=== PATIENT | male | born 1990 ===

== ENCOUNTER 2021-07-09 20:19 | Inpatient (IN) | payer BC, OTHER ==
[~2021-07-09] VITALS: Ht 177.8 cm; Wt 75.6 kg
[2021-07-09] MEDS: LORazepam 2 MG/ML, 1ML IVPush PRN ×2 (20:40→20:50)
[2021-07-09] MEDS ORDERED: LORazepam 2 MG/ML, 1ML ONE (20:49)
--- NOTE | 2021-07-09 20:52 | NUR ---
MAIRA GEORGE [phone]
[2021-07-09] MEDS ORDERED: SODIUM CHLORIDE 0.9% 1,000ML IVBOLUS ONE (21:00)
[2021-07-09] MEDS ORDERED: SODIUM CHLORIDE FLUSH 10ML SYR IVF ONE (21:00)
[2021-07-09] MEDS ORDERED: MAGNESIUM SULFATE 1 GM, THIAMINE 100 MG, FOLIC ACID 1 MG, MVI ADULT 10 ML in SODIUM CHL... IV ONE (21:00)
[2021-07-09 21:12] LABS: BASOPHILS % (AUTO) 1 % (0-1); EOSINOPHILS % (AUTO) 0 % (1-7); LYMPHOCYTES % (AUTO) 13 % (22-44); MEAN CORPUSCULAR HEMOGLOBIN 35.1 pg (27.5-34.5); MEAN CORPUSCULAR HGB CONC 34.7 g/dL (33.2-36.2); MEAN PLATELET VOLUME 9.3 fL (7.4-10.4); MONOCYTES % (AUTO) 15 % (2-9); NEUTROPHILS % (AUTO) 71 % (42-75); PLATELET COUNT 147 x10^3/uL (130-400); RED BLOOD COUNT 4.13 x10^6/uL (4.38-5.82); RED CELL DISTRIBUTION WIDTH 15.2 % (9.4-14.8)
[2021-07-09 21:18] LABS: ALANINE AMINOTRANSFERASE 127 U/L (12-78); ALBUMIN 4.3 g/dL (3.4-5.0); ANION GAP 23 mmol/L (5-15); CALCIUM 9.1 mg/dL (8.5-10.1); CHLORIDE 95 mmol/L (98-107); CREATININE 0.93 mg/dL (0.7-1.3)
[2021-07-09 21:20] LABS: ALKALINE PHOSPHATASE 102 U/L (45-117); BILIRUBIN,TOTAL 1.1 mg/dL (0.2-1.0); TOTAL PROTEIN 8.3 g/dL (6.4-8.2)
[2021-07-09] MEDS ORDERED: POTASSIUM CHLORIDE 20 MEQ TAB.ER.PRT ONE (21:45)
[2021-07-09] MEDS ORDERED: ONDANSETRON 2MG/ML, 2ML IVPush ONE (22:00)
[2021-07-09] MEDS ORDERED: POTASSIUM CHLORIDE 20 MEQ TAB.ER.PRT PO ONE (22:00)
[2021-07-09] MEDS ORDERED: ONDANSETRON 2MG/ML, 2ML ONE (22:05)
--- NOTE | 2021-07-09 22:16 | NUR ---
PT REPORTING NAUSEA, JAYESH STEELE AWARE, WILL ORDER ZOFRAN
--- NOTE | 2021-07-09 23:19 | NUR ---
REPORT GIVEN TO CLEMENTINE FARRELL
--- NOTE | 2021-07-09 23:20 | NUR ---
REPORT FROM JOSIAS PT RESTING ON YONG FRAGOSO, RESP EVEN UNLABORED
[2021-07-10] MEDS ORDERED: POTASSIUM CHLORIDE 40 MEQ in LACTATED RINGERS 1,000 ML IV SCH
[2021-07-10] MEDS ORDERED: LORazepam 2 MG/ML, 1ML ONE (00:05)
[2021-07-10] MEDS: LORazepam 2 MG/ML, 1ML IVPush PRN (00:09)
--- NOTE | 2021-07-10 00:12 | NUR ---
PT VERY TREMULOUS STS HE FEELS BAD, PT MEDICATED FOR WITHDRAWL SX
[2021-07-10] MEDS ORDERED: BACLOFEN 10 MG TABLET PO PRN (00:30)
[2021-07-10] MEDS ORDERED: ENOXAPARIN 40 MG/0.4 ML SQ SCH (00:30)
[2021-07-10] MEDS ORDERED: ONDANSETRON 2MG/ML, 2ML IV PRN (00:30)
[2021-07-10] MEDS ORDERED: LORazepam 0.5MG TABLET PO PRN (00:30)
[2021-07-10] MEDS ORDERED: ACETAMINOPHEN 650 MG SUPP PR PRN (00:30)
[2021-07-10] MEDS ORDERED: BISACODYL 10 MG SUPP PR PRN (00:30)
[2021-07-10] MEDS ORDERED: DIAZEPAM 5 MG TABLET PO SCH (00:30)
[2021-07-10] MEDS ORDERED: ALUMINUM/MAG/SIMETHICONE 30 ML UDC PO PRN (00:30)
[2021-07-10] MEDS ORDERED: LORazepam 1MG TABLET PO PRN ×4 (00:30)
[2021-07-10] MEDS ORDERED: LORazepam 2 MG/ML, 1ML IV PRN ×5 (00:30)
[2021-07-10] MEDS ORDERED: ACETAMINOPHEN 325 MG TABLET PO PRN (00:30)
[2021-07-10] MEDS ORDERED: DOCUSATE 100 MG CAPSULE PO PRN (00:30)
[2021-07-10 01:02] LABS: BASOPHILS % (AUTO) 1 % (0-1); EOSINOPHILS % (AUTO) 0 % (1-7); LYMPHOCYTES % (AUTO) 10 % (22-44); MEAN CORPUSCULAR HEMOGLOBIN 35.3 pg (27.5-34.5); MEAN CORPUSCULAR HGB CONC 35.2 g/dL (33.2-36.2); MEAN PLATELET VOLUME 9.1 fL (7.4-10.4); MONOCYTES % (AUTO) 18 % (2-9); NEUTROPHILS % (AUTO) 71 % (42-75); PLATELET COUNT 115 x10^3/uL (130-400); RED BLOOD COUNT 3.69 x10^6/uL (4.38-5.82); RED CELL DISTRIBUTION WIDTH 15.4 % (9.4-14.8)
[2021-07-10 01:03] LABS: ANION GAP 8 mmol/L (5-15); CALCIUM 8.1 mg/dL (8.5-10.1); CHLORIDE 103 mmol/L (98-107); CREATININE 0.58 mg/dL (0.7-1.3)
--- NOTE | 2021-07-10 01:11 | NUR ---
REPORT CALLED TO ANN FARRELL, ALL QUESTIONS ADDRESSED PT READY FOR TRANSFER TO [phone]
[2021-07-10 01:59] VITALS: BP 122/71
[2021-07-10 07:17] VITALS: BP 122/78
[2021-07-10] MEDS ORDERED: MULTIVITAMINS/MINERALS TABLET PO SCH (09:00)
[2021-07-10] MEDS: POTASSIUM CHLORIDE 20 MEQ, MAGNESIUM SULFATE 1 GM, FOLIC ACID 1 MG, THIAMINE 200 MG, MV... IV SCH ×2 (09:22→16:00)
[2021-07-10] MEDS ORDERED: MULT-484 PO (09:44)
[2021-07-10 10:55] LABS: AMPHETAMINE SCREEN, URINE Negative (Negative); BARBITURATE SCREEN, URINE Negative (Negative); BENZODIAZEPINE SCREEN, URINE Positive (Negative); CANNABINOID SCREEN, URINE Negative (Negative); COCAINE SCREEN, URINE Negative (Negative); METHADONE SCREEN, URINE Negative (Negative); OPIATE SCREEN, URINE Negative (Negative)
[2021-07-10 12:43] VITALS: BP 126/85
[2021-07-11] MEDS ORDERED: DIAZEPAM 5 MG TABLET PO SCH (00:30)
== END 2021-07-10 16:41 | disposition home or self-care (01) | DRG 641 ==
LOC: ED 07-10 01:07 → EDIP 07-10 01:43 → 5SO 07-10 01:51
PROVIDERS: ADMIT Internal Medicine; ATTEND Hospitalist
DX: E87.1 Hypo-osmolality and hyponatremia (principal); F10.231 Alcohol dependence with withdrawal delirium; E87.6 Hypokalemia; E88.89 Other specified metabolic disorders; F14.10 Cocaine abuse, uncomplicated; Z87.891 Personal history of nicotine dependence
CPT/HCPCS: 36415; 96360; 99285; J7121; 80048; 80053; 80307; 80320; 85025; 93005; G0378; J1650; J2405; J3411; J3475; J3480; G0480; J2060; J7030